=== PATIENT | male | born 1990 | race Hispanic/Latino ===

== ENCOUNTER 2020-02-22 14:54 | Emergency (ER) | payer OTHER, SELFPAY | END 2020-02-22 15:35 | disposition home or self-care (01) | LOC: ERS 14:54 | DX: J02.9 Acute pharyngitis, unspecified (principal); I10 Essential (primary) hypertension | CPT/HCPCS: 99281 ==

== ENCOUNTER 2022-11-01 09:01 | Day surgery (SDC) | payer OTHER ==
[2022-10-31 10:17] VITALS: BMI 44.1
[2022-11-01] MEDS ORDERED: Midazolam HCl 2 mg/2 ml Vial ONE (10:47)
[2022-11-01] MEDS ORDERED: Fentanyl 100 MCG/2 ML VIAL ONE ×2 (10:47→14:40)
[2022-11-01] MEDS ORDERED: Bupivacaine PF 0.5% 30 ML VIAL ONE (10:47)
[2022-11-01] MEDS ORDERED: Bupivacaine HCl 0.5%/Epinephrine 1:200,000/PF 30 ml Vial ONE (11:05)
[2022-11-01] MEDS ORDERED: Fentanyl 250 MCG/5 ML VIAL ONE (11:58)
[2022-11-01] MEDS ORDERED: VANCOMYCIN 2 GRAM/500 ML BAG 2 GM in Premix Bag 1 BAG IVPB SCH (12:00)
[2022-11-01] MEDS ORDERED: Sodium Chloride 0.9% 100 ML ONE (12:09)
[2022-11-01] MEDS ORDERED: CEFAZOLIN 2 GM VIAL ONE (12:09)
[2022-11-01] MEDS ORDERED: Rocuronium Bromide 10 MG/ML (10ML VIAL) ONE (12:21)
[2022-11-01] MEDS ORDERED: Lidocaine 1% PF 5 ML VIAL ONE (12:21)
[2022-11-01] MEDS ORDERED: Glycopyrrolate 0.2 MG/ML 5 ML SYRINGE ONE (12:21)
[2022-11-01] MEDS ORDERED: PROPOFOL 200 MG/20 ML VIAL ONE (12:21)
[2022-11-01] MEDS ORDERED: NEOSTIGMINE 3 MG/3 ML SYR 3 MG/3 ML SYRINGE ONE (12:21)
[2022-11-01] MEDS ORDERED: Dexamethasone 20 MG/5 ML VIAL ONE (12:21)
[2022-11-01] MEDS ORDERED: Ondansetron PF 4 MG/2 ML Vial ONE (12:21)
[2022-11-01] MEDS ORDERED: HYDROcodone/Acetaminophen 5/325 mg Tablet ONE ×2 (15:46→16:49)
== END 2022-11-01 17:04 | disposition home or self-care (01) ==
LOC: SDC 09:01
PROVIDERS: ATTEND Orthopaedic Surgery
PROC: 0SCC4ZZ Extirpation of Matter from Right Knee Joint, Percutaneous Endoscopic Approach (ICD-10-PCS; principal; 2022-11-01)
PROC: 0SUC0KZ Supplement Right Knee Joint with Nonautologous Tissue Substitute, Open Approach (ICD-10-PCS; principal; 2022-11-01)
PROC: 0SBC4ZZ Excision of Right Knee Joint, Percutaneous Endoscopic Approach (ICD-10-PCS; principal; 2022-11-01)
DX: M23.8X1 Other internal derangements of right knee (principal); M23.41 Loose body in knee, right knee; M94.261 Chondromalacia, right knee
CPT/HCPCS: C1713; C1768; C1776; J1100; J2250; J2405; J2704; J3010; J3370; J3490; S0020